=== PATIENT | male | born 1950 | race Caucasian/White ===

== ENCOUNTER → 2021-11-20 10:05 | Outpatient (CLI) | payer MEDICARE, OTHER, SELFPAY ==
[2021-11-20 14:55] LABS: COVID19 -Nasal RAPID Negative (Negative)
== END ==
PROVIDERS: Visit Provider Physician Assistant
DX: Z01.812 Encounter for preprocedural laboratory examination (principal); Z20.822 Contact with and (suspected) exposure to COVID-19
CPT/HCPCS: 87635; C9803

== ENCOUNTER 2021-11-21 07:13 | Day surgery (SDC) | payer MEDICARE, SELFPAY ==
[2021-11-21 07:46] VITALS: BP 126/78; PULSE 56; RESP 16; TEMP 36.6; O2SAT 100; BMI 25.7
[2021-11-21] MEDS: PROPARACAINE 0.5% OPHTH SOL 2 DROPS EYE-OP (07:57)
[2021-11-21] MEDS: CATARACT EYE COMPOUND (10 DROPS/SYRINGE) 3 DROPS EYE-OP (07:59)
--- NOTE | 2021-11-21 09:24 | P.OP_ITS ---
Operative Date/Time/Diagnoses Pre-op diagnosis: Nuclear cataract right eye Procedure & Clinicians Procedure: Cataract Surgery Same procedure as scheduled: Yes Surgeon: Saurabh Caraballo Anesthesia Type: MAC +/- and Sedation Operative Notes Procedure in detail: Patient brought to the operating suite. Tetracaine drops placed in the right eye. Marking in strument was used to mari the vertical and horizontal meridians. Patient was prepped and draped in sterile manner. Wire lid speculum was placed in the eye. Betadine drops were placed on the eye. This was irrigated. Lidocaine jelly was placed on the eye. A paracentesis port was created with a side-port blade. 0.1 mL 1% preservative free lidocaine was injected into the anterior chamber. The anterior chamber was deepened with viscoelastic. 2.6 mm keratome was used to create a temporal clear corneal incision. Cystotome and Utrata forceps were used to create continuous tear capsulorrhexis. Balanced salt solution was used to hydro dissect the nucleus. The phacoemulsification handpiece was inserted and the nucleus was removed using the stop and chop technique. The irrigation aspiration handpiece was inserted and the remaining cortex was removed. Anterior chamber was deepened with viscoelastic. An Machado [id number] intraocular lens with a power of 17.0 was injected into the capsular bag. Irrigation aspiration handpiece was inserted and the remaining viscoelastic was removed. The lens was rotated to the 180 degree meridian. Incision was hydrated with balanced salt solution and found to be leak free with pressure with Weck- Shahida sponges. 0.1 mL Vigamox injected anterior chamber. 0.3 mL Kenalog 10 mg was injected subconjunctivally. Lid speculum was removed. The patient left the operating room in excellent condition. Complications: none Post-operative Condition: stable Disposition: same day surgery
--- NOTE | 2021-11-21 09:24 | PM.PREOP ---
Pre-operative Note Interval Note History & Physical reviewed/Exam performed by Physician: Yes Changes to H&P: No
[2021-11-21 10:01] VITALS: BP 103/57; PULSE 50; RESP 16; TEMP 36.4; O2SAT 100
== END 2021-11-21 10:20 | disposition home or self-care (01) ==
PROVIDERS: PCP Family Medicine Sports Medicine; Referring Provider Ophthalmology; Visit Provider Ophthalmology
PROC: (CPT 66984; principal; 2021-11-21 09:15)
DX: H25.11 Age-related nuclear cataract, right eye (principal); K21.9 Gastro-esophageal reflux disease without esophagitis; I10 Essential (primary) hypertension
CPT/HCPCS: 66984; J2250; V2787

== ENCOUNTER → 2022-02-12 10:28 | Outpatient (CLI) | payer MEDICARE, SELFPAY ==
[2022-02-12 11:57] LABS: COVID19 -Nasal RAPID Negative (Negative)
== END ==
PROVIDERS: PCP Family Medicine Sports Medicine; Visit Provider Family Medicine Sleep Medicine
DX: Z20.822 Contact with and (suspected) exposure to COVID-19 (principal)
CPT/HCPCS: 87635; C9803

== ENCOUNTER 2022-02-13 06:53 | Day surgery (SDC) | payer MEDICARE, SELFPAY ==
[2022-02-13] MEDS: PROPARACAINE 0.5% OPHTH SOL 2 DROPS EYE-OP (07:11)
[2022-02-13] MEDS: CATARACT EYE COMPOUND (10 DROPS/SYRINGE) 3 DROPS EYE-OP (07:14)
[2022-02-13 07:16] VITALS: BP 130/65; PULSE 52; RESP 16; TEMP 36.4; O2SAT 98; BMI 25.0
--- NOTE | 2022-02-13 08:16 | PM.PREOP ---
Pre-operative Note Interval Note History & Physical reviewed/Exam performed by Physician: Yes Changes to H&P: No
--- NOTE | 2022-02-13 08:16 | PM.OP.1 ---
Operative Date/Time/Diagnoses Pre-op diagnosis: Nuclear Cataract Left eye Post-op diagnosis: same Procedure & Clinicians Same procedure as scheduled: Yes Surgeon: Saurabh Caraballo Anesthesia Type: MAC +/- and Sedation Operative Notes Procedure in detail: Patient brought to the operating suite. Tetracaine drops placed in the left eye. Marking instrument was used to mari the vertical and horizontal meridians. Patient was prepped and draped in sterile manner. Wire lid speculum was placed in the eye. The marking instrument was used to mari the 165 degree meridian. Betadine drops were placed on the eye. This was irrigated. Lidocaine jelly was placed on the eye. A paracentesis port was created with a side-port blade. 0.1 mL 1% preservative free lidocaine was injected into the anterior chamber. The anterior chamber was deepened with viscoelastic. 2.6 mm keratome was used to create a temporal clear corneal incision. Cystotome and Utrata forceps were used to create continuous tear capsulorrhexis. Balanced salt solution was used to hydro dissect the nucleus. The phacoemulsification handpiece was inserted and the nucleus was removed using the stop and chop technique. The irrigation aspiration handpiece was inserted and the remaining cortex was removed. Anterior chamber was deepened with viscoelastic. An Machado [id number] intraocular lens with a power of 17.0 was injected into the capsular bag. Irrigation aspiration handpiece was inserted and the remaining viscoelastic was removed. The lens was rotated to the 165 degree meridian. Incision was hydrated with balanced salt solution and found to be leak free with pressure with Weck-Shahida sponges. 0.1 mL Vigamox injected anterior chamber. 0.3 mL Kenalog 10 mg was injected subconjunctivally. Lid speculum was removed. The patient left the operating room in excellent condition. Complications: none Post-operative Condition: stable Disposition: same day surgery
--- NOTE | 2022-02-13 08:21 | SUR.OPER ---
Supine on eye stretcher, head on extension cradle secured with tape. Arms tucked at sides with blanket. Pillow under knees.
[2022-02-13] MEDS: HYALURONATE SODIUM 30 MG-10 MG/ML SYRINGES 1 BOX INTRAOCULA (08:35)
[2022-02-13] MEDS: PHENYLEPHRINE/LIDOCAINE VIAL (OR) 0.2 ML EYE-OP (08:35)
[2022-02-13] MEDS: MOXIFLOXACIN INJ 4 MG/0.8 ML VIAL 0.5 MG EYE-OP (08:35)
[2022-02-13] MEDS: TETRACAINE 0.5% OPHTH DROPS 4 ML 2 DROPS EYE-OP (08:36)
[2022-02-13] MEDS: BALANCED SALT IRRIG SOLN NO.2 500 ML, EPINEPHrine 1 MG IRR (08:36)
[2022-02-13] MEDS: TRIAMCINOLONE 50 MG/5 ML VIAL INJ (08:36)
[2022-02-13] MEDS: LIDOCAINE 2% (GLYDO) 6 ML GEL TOP (08:37)
[2022-02-13 08:52] VITALS: BP 107/63; PULSE 56; RESP 16; TEMP 36.5; O2SAT 93
== END 2022-02-13 09:10 | disposition home or self-care (01) ==
PROVIDERS: PCP Family Medicine Sports Medicine; Referring Provider Ophthalmology; Visit Provider Ophthalmology
PROC: (CPT 66984; principal; 2022-02-13 08:15)
DX: H25.12 Age-related nuclear cataract, left eye (principal); I10 Essential (primary) hypertension
CPT/HCPCS: 66984; J0171; J2250; J3010; J3301; V2787